=== PATIENT | female | born 1940 | race Caucasian/White ===

== ENCOUNTER → 2018-03-30 | Outpatient (CLI) | payer MEDICARE | END | disposition home or self-care (01) | LOC: KCIC MRI 14:19 | DX: M47.892 Other spondylosis, cervical region (principal); M48.02 Spinal stenosis, cervical region; M51.24 Other intervertebral disc displacement, thoracic region; M47.894 Other spondylosis, thoracic region; M25.78 Osteophyte, vertebrae; E78.5 Hyperlipidemia, unspecified; Z90.710 Acquired absence of both cervix and uterus | CPT/HCPCS: 72141; 72146 ==